=== PATIENT | female | born 1990 | race African-American/Black ===

== ENCOUNTER 2017-07-26 07:08 | Emergency (ER) | payer BC ==
[2017-07-26 08:15] LABS: microscopic required? YES; urine erythrocyte NEGATIVE (NEGATIVE)
[2017-07-26 10:43] VITALS: BP 117/73
== END 2017-07-26 10:43 | disposition home or self-care (01) ==
LOC: ED 07:08
PROVIDERS: Emergency Medicine Emergency Medical Services
DX: R10.31 Right lower quadrant pain (principal)